=== PATIENT | female | born 1980 | race Two or more races ===

== ENCOUNTER 2018-03-20 13:00 | Outpatient (CLI) | payer BC | END 2018-03-20 23:59 | disposition home or self-care (01) | LOC: MSC 13:00 | PROVIDERS: ATTEND Anesthesiology | DX: M47.816 Spondylosis without myelopathy or radiculopathy, lumbar region (principal); M53.3 Sacrococcygeal disorders, not elsewhere classified; M51.26 Other intervertebral disc displacement, lumbar region; M25.9 Joint disorder, unspecified ==